=== PATIENT | male | born 1970 | race Asian ===

== ENCOUNTER 2018-02-17 13:14 | Emergency (ER) | payer OTHER ==
[~2018-02-17] VITALS: Ht 167.6 cm; Wt 100.8 kg
[2018-02-17 17:09] VITALS: BP 120/80
== END 2018-02-17 17:09 | disposition home or self-care (01) ==
LOC: ED 13:14
DX: S86.812A Strain of other muscle(s) and tendon(s) at lower leg level, left leg, initial encounter (principal); E78.00 Pure hypercholesterolemia, unspecified; X58.XXXA Exposure to other specified factors, initial encounter; Y93.89 Activity, other specified; Y92.89 Other specified places as the place of occurrence of the external cause; Y99.8 Other external cause status